=== PATIENT | female | born 1945 | race Caucasian/White ===

== ENCOUNTER 2016-11-21 17:49 | Emergency (ER) | payer MEDICARE, BC ==
[~2016-11-21 17:49] MED LIST: BENTYL20 MG PO; BROVANA15 MCG/2 M NEB; CARAFATE1 GM PO; COREG25 MG PO; DOXEPIN HCL25 MG PO; EFFEXOR XR75 MG PO; IPRAT-ALBUT 0.5-3 ML NEB; LORTAB 10-3251 EACH PO; LOVASTATIN40 MG PO; OMEPRAZOLE40 MG PO; PHENERGAN25 M1 GT; PHENERGAN25 M1 PO; PREDNISONE10 MG PO; PRINIVIL10 MG PO; PULMICORT0.5 MG/2 M NEB; Q-TUSSIN DM SY118 ML PO; REGLAN10 MG PO; SYNTHROID100 MCG PO; VISTARIL25 MG PO; VITAMIN D350000 UNIT PO; ZANAFLEX4 MG PO; ZOFRAN ODT4 MG PO
== END 2016-11-22 01:00 | disposition short-term general hospital (02) ==
LOC: ER 17:49
DX: S62.315A Displaced fracture of base of fourth metacarpal bone, left hand, initial encounter for closed fracture (principal); S80.02XA Contusion of left knee, initial encounter; S80.12XA Contusion of left lower leg, initial encounter; S00.83XA Contusion of other part of head, initial encounter; S00.03XA Contusion of scalp, initial encounter; R55 Syncope and collapse; W18.30XA Fall on same level, unspecified, initial encounter; Z79.82 Long term (current) use of aspirin; Z79.899 Other long term (current) drug therapy
CPT/HCPCS: 36415; 96374; 96375

== ENCOUNTER 2017-02-18 23:47 | Emergency (ER) | payer MEDICARE, BC | END 2017-02-19 01:30 | disposition short-term general hospital (02) | LOC: ER 23:47 | DX: S05.01XA Injury of conjunctiva and corneal abrasion without foreign body, right eye, initial encounter (principal); F41.9 Anxiety disorder, unspecified; I10 Essential (primary) hypertension; Z90.710 Acquired absence of both cervix and uterus; Z79.82 Long term (current) use of aspirin; Z79.899 Other long term (current) drug therapy; Z88.8 Allergy status to other drugs, medicaments and biological substances; X58.XXXA Exposure to other specified factors, initial encounter ==